=== PATIENT | male | born 1990 | race Hispanic/Latino ===

== ENCOUNTER 2020-04-27 13:29 | Emergency (ER) | payer OTHER | END 2020-04-27 15:56 | disposition home or self-care (01) | LOC: EDH 13:29 | DX: F41.8 Other specified anxiety disorders (principal); F10.20 Alcohol dependence, uncomplicated; Z72.0 Tobacco use ==

== ENCOUNTER 2024-04-09 09:53 | Emergency (ER) | payer OTHER ==
[~2024-04-09] VITALS: Ht 167.6 cm; Wt 99.8 kg
[2024-04-09 09:56] VITALS: TEMP 98.8
[2024-04-09 10:11] VITALS: BP 121/70; PULSE 90; RESP 17; O2SAT 100
[2024-04-09] MEDS: acetaMINOPHEN 500 MG TABLET PO ONE (10:21)
== END 2024-04-09 10:42 | disposition home or self-care (01) ==
LOC: EDH 09:53
DX: M25.562 Pain in left knee (principal); Z94.4 Liver transplant status; Z98.890 Other specified postprocedural states; X58.XXXA Exposure to other specified factors, initial encounter; Y93.89 Activity, other specified; Y92.89 Other specified places as the place of occurrence of the external cause; Y99.8 Other external cause status
CPT/HCPCS: 73564